=== PATIENT | male | born 1985 | race Asian ===

== ENCOUNTER 2023-01-29 14:47 | Emergency (ER) | payer MEDICARE ==
[~2023-01-29] VITALS: Ht 175.3 cm; Wt 109.8 kg
[2023-01-29 14:48] VITALS: BP 137/78
[2023-01-29] MEDS ORDERED: CYCL-707 PO (17:16)
[2023-01-29] MEDS ORDERED: LIDO1PAD13 TOP (17:16)
[2023-01-29] MEDS ORDERED: IBUP80TA PO (17:16)
== END 2023-01-29 17:34 | disposition home or self-care (01) ==
LOC: M ED 14:47
DX: S39.012A Strain of muscle, fascia and tendon of lower back, initial encounter (principal); F10.10 Alcohol abuse, uncomplicated; Z79.891 Long term (current) use of opiate analgesic; Z79.899 Other long term (current) drug therapy